=== PATIENT | male | born 1960 | race Caucasian/White ===

== ENCOUNTER 2023-03-26 07:05 | Emergency (ER) | payer BC ==
[~2023-03-26] VITALS: Ht 185.4 cm; Wt 78.6 kg
[2023-03-26 07:45] VITALS: TEMP 97.7
[2023-03-26] MEDS ORDERED: ONDA4TAB12 PO (08:02)
[2023-03-26] MEDS ORDERED: oxyCODONE/APAP 10/325mg tablet PO ONE (08:05)
[2023-03-26] MEDS ORDERED: ondansetron 4mg rapidly disintigrating tab PO ONE (08:05)
[2023-03-26 09:08] VITALS: BP 120/86; PULSE 86; RESP 20; O2SAT 97
== END 2023-03-26 08:35 | disposition home or self-care (01) ==
LOC: ER 07:06
DX: S42.392A Other fracture of shaft of left humerus, initial encounter for closed fracture (principal); X58.XXXA Exposure to other specified factors, initial encounter; Y93.89 Activity, other specified; Y92.89 Other specified places as the place of occurrence of the external cause; Y99.8 Other external cause status
CPT/HCPCS: 99284